=== PATIENT | male | born 1985 | race Caucasian/White ===

== ENCOUNTER 2017-07-15 08:14 | Emergency (ER) | payer MEDICAID ==
[~2017-07-15] VITALS: Ht 160 cm; Wt 64.9 kg
[~2017-07-15 08:14] MED LIST: HYDR-565 PO
[2017-07-15] MEDS ORDERED: IBUP-1984 PO (09:09)
[2017-07-15] MEDS ORDERED: TRAM50TA2 PO (09:09)
[2017-07-15 09:34] VITALS: BP 116/83
== END 2017-07-15 09:40 | disposition home or self-care (01) ==
LOC: ER 08:15
DX: M25.511 Pain in right shoulder (principal); F12.10 Cannabis abuse, uncomplicated
CPT/HCPCS: 99283

== ENCOUNTER 2017-07-19 12:52 | Emergency (ER) | payer MEDICAID ==
[~2017-07-19] VITALS: Ht 160 cm; Wt 61.0 kg
[~2017-07-19 12:52] MED LIST changes: +IBUP-1984 PO; +TRAM50TA2 PO
[2017-07-19] MEDS ORDERED: CYCL-1 PO (14:22)
[2017-07-19] MEDS ORDERED: NAPR-56 PO (14:22)
[2017-07-19 14:30] VITALS: BP 110/77
== END 2017-07-19 14:32 | disposition home or self-care (01) ==
LOC: ER 12:53
DX: S29.012A Strain of muscle and tendon of back wall of thorax, initial encounter (principal); F12.10 Cannabis abuse, uncomplicated; X58.XXXA Exposure to other specified factors, initial encounter; Y93.89 Activity, other specified; Y92.830 Public park as the place of occurrence of the external cause; Y99.8 Other external cause status; Z79.899 Other long term (current) drug therapy; Z56.0 Unemployment, unspecified
CPT/HCPCS: 99283

== ENCOUNTER 2017-08-21 08:55 | Emergency (ER) | payer MEDICAID ==
[~2017-08-21] VITALS: Ht 160 cm; Wt 63.3 kg
[~2017-08-21 08:55] MED LIST changes: +CYCL-1 PO; -IBUP-1984 PO; -TRAM50TA2 PO
[2017-08-21 09:03] VITALS: BP 149/81
[2017-08-21] MEDS ORDERED: ALBU6.7H INH (10:34)
[2017-08-21] MEDS ORDERED: OMEP40CA37 PO (10:34)
[2017-08-21] MEDS ORDERED: IBUP-1985 PO (10:34)
== END 2017-08-21 11:01 | disposition home or self-care (01) ==
LOC: ER 08:55
DX: J40 Bronchitis, not specified as acute or chronic (principal); J06.9 Acute upper respiratory infection, unspecified; K29.70 Gastritis, unspecified, without bleeding; F17.200 Nicotine dependence, unspecified, uncomplicated; F12.10 Cannabis abuse, uncomplicated; Z71.6 Tobacco abuse counseling; Z56.0 Unemployment, unspecified
CPT/HCPCS: 99283; 99406

== ENCOUNTER 2017-09-19 07:53 | Emergency (ER) | payer MEDICAID ==
[~2017-09-19] VITALS: Ht 160 cm; Wt 54.3 kg
[~2017-09-19 07:53] MED LIST changes: +ALBU6.7H INH; +IBUP-1985 PO; +OMEP40CA37 PO
[2017-09-19 08:18] LABS: BASOPHILS % (AUTO) 0.5 % (0-1); EOSINOPHILS # (AUTO) 0.2 X10'3 (0-0.9); EOSINOPHILS % (AUTO) 4.1 % (0-6); HEMATOCRIT 43.3 % (42.0-52.0); LYMPHOCYTES # (AUTO) 1.9 X10'3 (1.1-4.8); LYMPHOCYTES % (AUTO) 32.4 % (21-51); MEAN CORPUSCULAR HEMOGLOBIN 31.2 PG (27.0-31.0); MEAN CORPUSCULAR HGB CONC 34.6 % (33.0-36.5); MEAN CORPUSCULAR VOLUME 90.3 FL (78-98); MEAN PLATELET VOLUME 6.8 FL (7.4-10.4); MONOCYTES # (AUTO) 0.4 X10'3 (0-0.9); MONOCYTES % (AUTO) 6.8 % (2-12); NEUTROPHILS # (AUTO) 3.3 X10'3 (1.8-7.7); NEUTROPHILS % (AUTO) 56.2 % (42-75); PLATELET COUNT 266 X10'3 (140-440); RED BLOOD COUNT 4.79 X10'6 (4.70-6.10); RED CELL DISTRIBUTION WIDTH 13.2 % (11.5-14.5); WHITE BLOOD COUNT 5.9 X10'3 (4.5-11.0)
[2017-09-19 08:56] LABS: ALANINE AMINOTRANSFERASE 85 U/L (12-78); ALBUMIN 3.8 G/DL (3.4-5.0); ALKALINE PHOSPHATASE 45 IU/L (46-116); ANION GAP 5 (8-16); ASPARTATE AMINO TRANSFERASE 47 U/L (10-37); BILIRUBIN,TOTAL 0.5 MG/DL (0.1-1.0); BLOOD UREA NITROGEN 11 MG/DL (7-18); BUN/CREATININE RATIO 9.7 (5.4-32.0); CALCIUM 8.6 MG/DL (8.5-10.1); CHLORIDE 104 MMOL/L (99-107); CREATININE 1.13 MG/DL (0.60-1.10); GLUCOSE 90 MG/DL (70-104); LIPASE 176 U/L (73-393); POTASSIUM 4.2 MMOL/L (3.5-5.1); SODIUM 139 MMOL/L (135-145); TOTAL CARBON DIOXIDE 29.6 MMOL/L (24-32); TOTAL PROTEIN 7.5 G/DL (6.4-8.2); eGFR 75 ML/MIN
[2017-09-19 10:23] LABS: CLARITY,URINE CLEAR (Clear); COLOR,URINE STRAW (Yellow); GLUCOSE, URINE NEGATIVE (Neg); KETONES,URINE NEGATIVE (Neg); LEUKOCYTE ESTERASE ,URINE NEGATIVE (Neg); NITRITES, URINE NEGATIVE (Neg); OCCULT BLOOD,URINE NEGATIVE (Neg); PH,URINE 6.5 (4.8-8.0); PROTEIN,URINE NEGATIVE (Neg); UROBILINOGEN,URINE 0.2 E.U/dL (0.2-1.0)
[2017-09-19 10:24] LABS: UA COLLECTION TYPE URINAL
[2017-09-19 10:37] LABS: URINE AMPHETAMINE SCREEN POSITIVE (Neg); URINE BARBITUATE SCREEN NEGATIVE (Neg); URINE BENZODIAZEPINES SCREEN NEGATIVE (Neg); URINE CANNABINOID SCREEN NEGATIVE (Neg); URINE COCAINE SCREEN NEGATIVE (Neg); URINE METHADONE SCREEN NEGATIVE (Neg); URINE OPIATE SCREEN NEGATIVE (Neg); URINE PHENCYCLIDINE SCREEN NEGATIVE (Neg)
[2017-09-19 10:50] VITALS: BP 119/74
== END 2017-09-19 10:51 | disposition home or self-care (01) ==
LOC: ER 07:54
DX: R10.11 Right upper quadrant pain (principal); F12.10 Cannabis abuse, uncomplicated; Z56.0 Unemployment, unspecified; Z79.899 Other long term (current) drug therapy
CPT/HCPCS: 36415; 71046; 76700; 80053; 80305; 81003; 83690; 85025; 99285

== ENCOUNTER 2017-09-24 21:55 | Emergency (ER) | payer MEDICAID ==
[~2017-09-24 21:55] MED LIST changes: -OMEP40CA37 PO
== END 2017-09-25 00:29 | disposition left against medical advice (07) ==
LOC: ER 21:55
DX: R07.0 Pain in throat (principal); Z53.21 Procedure and treatment not carried out due to patient leaving prior to being seen by health care provider

== ENCOUNTER 2018-02-24 13:34 | Emergency (ER) | payer MEDICAID ==
[~2018-02-24] VITALS: Ht 167.6 cm; Wt 68.2 kg
[2018-02-24 13:39] VITALS: BP 134/83
[2018-02-24] MEDS ORDERED: LIDOcaine 1.5% w/epinephrine 1:200,000 5ml ampul IJ ONE (13:55)
[2018-02-24] MEDS ORDERED: HYDR-565 PO (14:08)
[2018-02-24] MEDS ORDERED: PENI500T2 PO (14:08)
[2018-02-24] MEDS ORDERED: penicillin V potassium 500mg tablet PO ONE (14:10)
== END 2018-02-24 14:19 | disposition home or self-care (01) ==
LOC: ER 13:35
DX: K04.7 Periapical abscess without sinus (principal); F12.90 Cannabis use, unspecified, uncomplicated; Z79.899 Other long term (current) drug therapy; Z56.0 Unemployment, unspecified
CPT/HCPCS: 41800; 99283; A6449; J3490

== ENCOUNTER 2018-04-01 12:47 | Emergency (ER) | payer MEDICAID ==
[~2018-04-01] VITALS: Ht 160 cm; Wt 64.0 kg
[2018-04-01] MEDS ORDERED: PENI-88 PO (13:07)
[2018-04-01] MEDS ORDERED: ACET1TAB25 PO (13:07)
[2018-04-01] MEDS ORDERED: acetaminophen w/codeine (30MG) #3 tablet PO ONE (13:10)
[2018-04-01 13:35] VITALS: BP 129/89
== END 2018-04-01 13:37 | disposition home or self-care (01) ==
LOC: ER 12:48
DX: K02.9 Dental caries, unspecified (principal); K08.89 Other specified disorders of teeth and supporting structures; F12.90 Cannabis use, unspecified, uncomplicated; Z56.0 Unemployment, unspecified; Z79.899 Other long term (current) drug therapy
CPT/HCPCS: 99283

== ENCOUNTER 2018-10-22 05:50 | Emergency (ER) | payer MEDICAID ==
[~2018-10-22] VITALS: Ht 162.6 cm; Wt 63.0 kg
[~2018-10-22 05:50] MED LIST changes: +HYDR-4353 PO; -HYDR-565 PO
[2018-10-22 05:53] VITALS: BP 115/76
[2018-10-22] MEDS ORDERED: BENZ-16 PO (07:32)
== END 2018-10-22 07:59 | disposition home or self-care (01) ==
LOC: ER 05:50
DX: R05 Cough (principal); R09.89 Other specified symptoms and signs involving the circulatory and respiratory systems; F12.90 Cannabis use, unspecified, uncomplicated; F17.200 Nicotine dependence, unspecified, uncomplicated; Z56.0 Unemployment, unspecified; Z79.899 Other long term (current) drug therapy
CPT/HCPCS: 99283

== ENCOUNTER 2018-11-04 05:32 | Emergency (ER) | payer MEDICAID ==
[~2018-11-04] VITALS: Ht 160 cm; Wt 62.7 kg
[~2018-11-04 05:32] MED LIST changes: +BENZ-16 PO
[2018-11-04 05:43] VITALS: BP 113/81
[2018-11-04] MEDS ORDERED: bacitracin 15gm ointment TP ONE (06:10)
== END 2018-11-04 06:36 | disposition home or self-care (01) ==
LOC: ER 05:32
DX: S60.411A Abrasion of left index finger, initial encounter (principal); F12.90 Cannabis use, unspecified, uncomplicated; Z56.0 Unemployment, unspecified; Z79.899 Other long term (current) drug therapy; W27.8XXA Contact with other nonpowered hand tool, initial encounter; Y93.89 Activity, other specified; Y92.89 Other specified places as the place of occurrence of the external cause; Y99.8 Other external cause status
CPT/HCPCS: 99283

== ENCOUNTER 2019-12-03 17:50 | Emergency (ER) | payer MEDICAID ==
[~2019-12-03] VITALS: Ht 162.6 cm; Wt 72.7 kg
[~2019-12-03 17:50] MED LIST changes: -ALBU6.7H INH; +ALBU6.7H9 INH; -BENZ-16 PO
[2019-12-03 17:58] VITALS: BP 121/79
[2019-12-03] MEDS ORDERED: CEPH250T PO (18:05)
[2019-12-03] MEDS ORDERED: HYDR-4383 PO (18:32)
== END 2019-12-03 18:35 | disposition home or self-care (01) ==
LOC: ER 17:50
DX: K04.7 Periapical abscess without sinus (principal); F12.90 Cannabis use, unspecified, uncomplicated; Z56.0 Unemployment, unspecified; Z79.899 Other long term (current) drug therapy
CPT/HCPCS: 99283

== ENCOUNTER 2020-05-06 20:05 | Emergency (ER) | payer MEDICAID ==
[~2020-05-06] VITALS: Ht 165.1 cm; Wt 72.7 kg
[~2020-05-06 20:05] MED LIST changes: +HYDR-4383 PO
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
[2020-05-06] MEDS ORDERED: iohexol 300mg/ml 100ml inj. ONE (20:39)
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
[2020-05-06] MEDS ORDERED: ketorolac trometh. 30mg/ml inj. IV ONE (21:40)
--- NOTE | 2020-05-06 21:41 | NUR ---
PER EDMD MCCARTHY, RECEIVED VERBAL ORDER FOR TORADOL 15MG IV X1 DOSE NOW. ORDER PLACED RECEIVED
[2020-05-06 22:09] VITALS: BP 120/79
== END 2020-05-06 22:11 ==
LOC: ER 20:05
DX: S30.811A Abrasion of abdominal wall, initial encounter (principal); M54.2 Cervicalgia; R07.89 Other chest pain; F12.90 Cannabis use, unspecified, uncomplicated; Z56.0 Unemployment, unspecified; Z79.899 Other long term (current) drug therapy; V87.7XXA Person injured in collision between other specified motor vehicles (traffic), initial encounter; Y93.89 Activity, other specified; Y92.89 Other specified places as the place of occurrence of the external cause; Y99.8 Other external cause status
CPT/HCPCS: 70450; 71260; 72125; 74177; 96374; 99285; J1885; Q9967

== ENCOUNTER 2020-09-03 12:28 | Emergency (ER) | payer MEDICAID ==
[~2020-09-03] VITALS: Ht 162.6 cm; Wt 72.7 kg
[2020-09-03] MEDS ORDERED: PENI500T2 PO (12:40)
== END 2020-09-03 12:50 | disposition home or self-care (01) ==
LOC: ER 12:29
DX: J02.9 Acute pharyngitis, unspecified (principal); F12.90 Cannabis use, unspecified, uncomplicated; Z56.0 Unemployment, unspecified; Z79.899 Other long term (current) drug therapy
CPT/HCPCS: 87081; 87880; 99283

== ENCOUNTER 2022-12-23 01:21 | Emergency (ER) | payer MEDICAID ==
[~2022-12-23] VITALS: Ht 162.6 cm; Wt 68.0 kg
[~2022-12-23 01:21] MED LIST changes: +ALBU6.7H14 INH; -ALBU6.7H9 INH
--- NOTE | 2022-12-23 01:47 | NUR ---
pt to ct
[2022-12-23 02:50] LABS: BASOPHILS % (AUTO) 0.3 % (0-1); EOSINOPHILS # (AUTO) 0.2 X10'3 (0-0.9); EOSINOPHILS % (AUTO) 2.1 % (0-6); HEMATOCRIT 41.3 % (42.0-52.0); HEMOGLOBIN 14.1 g/dl (14.0-17.9); LYMPHOCYTES # (AUTO) 1.3 X10'3 (1.1-4.8); LYMPHOCYTES % (AUTO) 17.2 % (21-51); MEAN CORPUSCULAR HEMOGLOBIN 31.6 PG (27.0-31.0); MEAN CORPUSCULAR VOLUME 92.7 FL (78-98); MEAN PLATELET VOLUME 7.2 FL (7.4-10.4); MONOCYTES # (AUTO) 0.4 X10'3 (0-0.9); MONOCYTES % (AUTO) 5.4 % (2-12); NEUTROPHILS # (AUTO) 5.7 X10'3 (1.8-7.7); PLATELET COUNT 216 X10'3 (140-440); RED BLOOD COUNT 4.46 X10'6 (4.70-6.10); RED CELL DISTRIBUTION WIDTH 13.3 % (11.5-14.5); WHITE BLOOD COUNT 7.6 X10'3 (4.5-11.0)
[2022-12-23] MEDS ORDERED: HYDROcodone/acetaminophen 5mg/325mg tablet PO ONE (02:55)
[2022-12-23 02:59] LABS: APTT 27 SECONDS (22-32)
[2022-12-23 03:00] LABS: ALANINE AMINOTRANSFERASE 102 U/L (12-78); ALBUMIN 3.4 G/DL (3.4-5.0); ALBUMIN/GLOBULIN RATIO 1.2 (1.1-1.5); ALKALINE PHOSPHATASE 45 IU/L (46-116); ANION GAP 15 (8-16); ASPARTATE AMINO TRANSFERASE 71 U/L (10-37); BILIRUBIN,TOTAL 0.4 MG/DL (0.1-1.0); BLOOD UREA NITROGEN 14 MG/DL (7-18); BUN/CREATININE RATIO 15.2 (10.0-20.0); CALCIUM 8.2 MG/DL (8.5-10.1); CHLORIDE 106 MMOL/L (99-107); CREATININE 0.92 MG/DL (0.60-1.10); ETHANOL 0.018 GM/DL (0.0-0.010); GLUCOSE 88 MG/DL (70-104); POTASSIUM 3.1 MMOL/L (3.5-5.1); SODIUM 145 MMOL/L (135-145); TOTAL CARBON DIOXIDE 24.5 MMOL/L (24-32); TOTAL PROTEIN 6.2 G/DL (6.4-8.2); eGFR > 90 ML/MIN
[2022-12-23] MEDS ORDERED: HYDR-3973 PO (03:40)
[2022-12-23 03:43] VITALS: BP 117/74
== END 2022-12-23 03:45 | disposition home or self-care (01) ==
LOC: ER 01:22
DX: S02.40FA Zygomatic fracture, left side, initial encounter for closed fracture (principal); S00.81XA Abrasion of other part of head, initial encounter; S02.0XXA Fracture of vault of skull, initial encounter for closed fracture; S00.511A Abrasion of lip, initial encounter; S60.211A Contusion of right wrist, initial encounter; F12.90 Cannabis use, unspecified, uncomplicated; Z56.0 Unemployment, unspecified; Z86.19 Personal history of other infectious and parasitic diseases; Z79.899 Other long term (current) drug therapy; W18.39XA Other fall on same level, initial encounter; Y93.89 Activity, other specified; Y92.89 Other specified places as the place of occurrence of the external cause; Y99.8 Other external cause status
CPT/HCPCS: 36415; 70450; 72125; 73110; 80053; 80320; 85025; 85610; 85730; 99284; L0172

== ENCOUNTER 2024-06-07 12:48 | Emergency (ER) | payer MEDICAID ==
[~2024-06-07] VITALS: Ht 160 cm; Wt 65.9 kg
[2024-06-07] MEDS ORDERED: SULF1TAB49 PO (13:11)
[2024-06-07] MEDS: CefTRIAXone 1000mg IM Kit (w/lidocaine diluent) IM ONE (13:43)
[2024-06-07 14:13] VITALS: BP 117/89; PULSE 83; RESP 16; TEMP 98.9; O2SAT 98
== END 2024-06-07 14:15 | disposition home or self-care (01) ==
LOC: ER 12:48
DX: L03.113 Cellulitis of right upper limb (principal); L02.511 Cutaneous abscess of right hand; F12.90 Cannabis use, unspecified, uncomplicated
CPT/HCPCS: 96372; 99283; J0696